=== PATIENT | male | born 1940 | race Caucasian/White ===

== ENCOUNTER 2020-03-07 18:38 | Inpatient (IN) ==
[2020-03-07] MEDS ORDERED: Ipratropium/Albuterol Neb 3 ML IH ONE (18:52)
[2020-03-07] MEDS ORDERED: methylPREDNISolone 125 MG/2 ML VIAL IVP ONE (18:53)
[2020-03-07 19:22] LABS: Basophils % 0.4 %; Eosinophils # 0.2 K/mcL (0.0-0.6); Eosinophils % 2.5 %; Hematocrit 41.6 % (37.5-50.1); Hemoglobin 14.3 g/dL (12.9-16.9); Immature Granulocytes % 0.4 % (0-4); Lymphocytes # 0.9 K/mcL (0.6-4.6); Lymphocytes % 9.5 %; Mean Corpuscular HGB Conc 34.4 g/dL (31.6-35.5); Mean Corpuscular Hemoglobin 30.8 pg (28.0-33.3); Mean Corpuscular Volume 89.7 fL (83.0-100.0); Mean Platelet Volume 8.5 fL (9.4-12.4); Monocytes # 0.8 K/mcL (0.0-1.3); Monocytes % 8.6 %; Neutrophils # 7.6 K/mcL (1.6-8.9); Platelet Count 361 K/mcL (140-400); Red Blood Count 4.64 M/mcL (4.19-5.50); Red Cell Distribution Width 12.2 % (11.5-14.5); Segmented Neutrophils % 78.6 %; White Blood Count 9.7 K/mcL (4.3-11.1)
[2020-03-07 19:41] LABS: BUN/Creatinine Ratio 11 (6-26); Blood Urea Nitrogen 9 mg/dL (8-23); Calcium 8.8 mg/dL (8.6-10.3); Carbon Dioxide 25 mEq/L (23-29); Chloride 96 mEq/L (98-107); Glucose 118 mg/dL (70-105); Osmolality,Calculated 274 (280-300); Potassium 3.8 mEq/L (3.5-5.1); Sodium 132 mEq/L (136-145); eGFR For African Americans > 60 (> 60); eGFR For Non-African Americans > 60 (> 60)
[2020-03-07 19:42] LABS: Troponin I < 0.03 ng/mL (< 0.04)
[2020-03-07] MEDS ORDERED: Naloxone 0.4 MG/ML INJ IVP PRN (22:37)
[2020-03-07] MEDS ORDERED: Acetaminophen 325 MG TABLET PO PRN (22:44)
[2020-03-07] MEDS ORDERED: Ondansetron 4 MG/2 ML VIAL IVP PRN (22:44)
[2020-03-07] MEDS: 0.9 % Sodium Chloride 1,000 ML IVC SCH (22:57)
[2020-03-07] MEDS: Albuterol 2.5 MG/3 ML NEBULIZER IH SCH (23:38)
[2020-03-08] MEDS: Albuterol 2.5 MG/3 ML NEBULIZER IH SCH ×7 (03:32→23:03)
[2020-03-08] MEDS: *HR* Heparin 5,000 UNIT/ML VIAL SQ SCH ×2 (06:29→17:11)
[2020-03-08] MEDS: predniSONE 20 MG TABLET PO SCH (08:45)
[2020-03-08] MEDS: 0.9 % Sodium Chloride 1,000 ML IVC SCH ×2 (08:45→19:39)
[2020-03-08] MEDS: hydroCHLOROthiazide 25 MG TABLET PO SCH (08:45)
[2020-03-08] MEDS ORDERED: Lidocaine -MPF 2% 2 ML VIAL ONE (12:29)
[2020-03-08] MEDS: Budesonide/Formoterol 80/4.5 1 PUFF INH IH SCH ×2 (13:38→19:47)
[2020-03-08] MEDS: Metoclopramide 10 MG/2 ML VIAL IVP PRN (16:39)
[2020-03-08] MEDS: Pantoprazole 40 MG VIAL IVP SCH (17:14)
[2020-03-09 02:10] LABS: Hematocrit 38.5 % (37.5-50.1); Hemoglobin 12.8 g/dL (12.9-16.9); Mean Corpuscular HGB Conc 33.2 g/dL (31.6-35.5); Mean Corpuscular Hemoglobin 30.4 pg (28.0-33.3); Mean Corpuscular Volume 91.4 fL (83.0-100.0); Mean Platelet Volume 8.7 fL (9.4-12.4); Platelet Count 348 K/mcL (140-400); Red Blood Count 4.21 M/mcL (4.19-5.50); Red Cell Distribution Width 12.3 % (11.5-14.5); White Blood Count 10.4 K/mcL (4.3-11.1)
[2020-03-09 02:31] LABS: BUN/Creatinine Ratio 15 (6-26); Blood Urea Nitrogen 11 mg/dL (8-23); Calcium 8.1 mg/dL (8.6-10.3); Carbon Dioxide 25 mEq/L (23-29); Chloride 100 mEq/L (98-107); Glucose 121 mg/dL (70-105); Osmolality,Calculated 279 (280-300); Potassium 3.5 mEq/L (3.5-5.1); Sodium 134 mEq/L (136-145); eGFR For African Americans > 60 (> 60); eGFR For Non-African Americans > 60 (> 60)
[2020-03-09] MEDS: Albuterol 2.5 MG/3 ML NEBULIZER IH SCH ×6 (03:14→23:02)
[2020-03-09] MEDS: Pantoprazole 40 MG VIAL IVP SCH (05:16)
[2020-03-09] MEDS: 0.9 % Sodium Chloride 1,000 ML IVC SCH (05:17)
[2020-03-09] MEDS: *HR* Heparin 5,000 UNIT/ML VIAL SQ SCH ×2 (05:18→18:19)
[2020-03-09] MEDS: Metoclopramide 10 MG/2 ML VIAL IVP PRN (05:24)
[2020-03-09] MEDS: Tiotropium 10 INH DOSE IH SCH (07:34)
[2020-03-09] MEDS: Budesonide/Formoterol 80/4.5 1 PUFF INH IH SCH ×2 (07:37→19:23)
[2020-03-09] MEDS: hydroCHLOROthiazide 25 MG TABLET PO SCH (10:11)
[2020-03-09] MEDS: predniSONE 20 MG TABLET PO SCH (10:12)
[2020-03-10] MEDS: Albuterol 2.5 MG/3 ML NEBULIZER IH SCH ×3 (03:50→11:02)
[2020-03-10] MEDS: *HR* Heparin 5,000 UNIT/ML VIAL SQ SCH (05:27)
[2020-03-10] MEDS: Tiotropium 10 INH DOSE IH SCH (07:27)
[2020-03-10] MEDS: Budesonide/Formoterol 80/4.5 1 PUFF INH IH SCH (07:27)
[2020-03-10 07:32] VITALS: BP 136/75
[2020-03-10] MEDS: predniSONE 20 MG TABLET PO SCH (09:07)
[2020-03-10] MEDS: hydroCHLOROthiazide 25 MG TABLET PO SCH (09:07)
[2020-03-10] MEDS: Metoclopramide 10 MG/2 ML VIAL IVP PRN (09:11)
== END 2020-03-10 14:16 | disposition home health service (06) | DRG 381 ==
LOC: EMEROOARM 18:38 → 3ANU 18:38 → SUATTDRO 22:18 → 3ANU 22:38
PROVIDERS: ADMIT Internal Medicine; ATTEND Internal Medicine
PROC: ENDOEBX (2020-03-08 12:00)